=== PATIENT | female | born 2000 | race Caucasian/White ===

== ENCOUNTER 2021-09-08 19:57 | Emergency (ER) | payer SELFPAY ==
[2021-09-08 21:05] LABS: HEMOGLOBIN 12.6 gm/dl (12.3-15.3); RED BLOOD COUNT 4.53 M/UL (4.00-5.10); WHITE BLOOD COUNT 10.2 K/UL (4.5-11.0)
[2021-09-08 21:21] LABS: BUN/CREATININE RATIO 14 (0-10)
== END 2021-09-08 22:40 | disposition home or self-care (01) ==
LOC: ER1 19:57
PROVIDERS: Physician Assistant
DX: R07.9 Chest pain, unspecified (principal); R03.0 Elevated blood-pressure reading, without diagnosis of hypertension; E03.9 Hypothyroidism, unspecified; Z79.899 Other long term (current) drug therapy
CPT/HCPCS: 71045; 80053; 82550; 82553; 84439; 84443; 84484; 84703; 85025; 93005; 99285

== ENCOUNTER 2021-09-27 00:15 | Emergency (ER) | payer SELFPAY | END 2021-09-27 02:15 | disposition left against medical advice (07) | LOC: ER1 00:15 | DX: R53.83 Other fatigue (principal); M79.10 Myalgia, unspecified site; Z88.7 Allergy status to serum and vaccine; Z20.822 Contact with and (suspected) exposure to COVID-19 | CPT/HCPCS: 0240U; 71045; 81001; 93005; 99283; J1885 ==

== ENCOUNTER → 2021-09-27 20:30 | Emergency (ER) | payer SELFPAY | END | disposition left against medical advice (07) | LOC: ER1 20:30 | DX: R06.02 Shortness of breath (principal) ==

== ENCOUNTER 2021-09-28 02:23 | Emergency (ER) | payer SELFPAY ==
[2021-09-28 02:54] LABS: HEMOGLOBIN 13.2 gm/dl (12.3-15.3); RED BLOOD COUNT 4.59 M/UL (4.00-5.10); WHITE BLOOD COUNT 9.7 K/UL (4.5-11.0)
[2021-09-28 03:26] LABS: BUN/CREATININE RATIO 15 (0-10)
== END 2021-09-28 09:10 | disposition home or self-care (01) ==
LOC: ER1 02:23
PROVIDERS: Student in an Organized Health Care Education/Training Program
DX: R53.1 Weakness (principal); R53.83 Other fatigue
CPT/HCPCS: 0240U; 71045; 80053; 82550; 82553; 84484; 85025; 93005; 99285